=== PATIENT | female | born 1995 | race Caucasian/White ===

== ENCOUNTER 2019-09-25 15:09 | Inpatient (IN) | payer OTHER ==
[~2019-09-25] VITALS: Ht 154.9 cm; Wt 67.0 kg
[2019-09-25] MEDS ORDERED: IOHEXOL 300 MG/ML 100ML VIAL. IV ONE (16:30)
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
[2019-09-25 16:46] LABS: BASO % 0 % (0-3); EOS # 0.1 x10^3/uL (0.0-0.7); EOS % 1 % (0-3); HEMATOCRIT 41.3 % (36.0-47.0); HEMOGLOBIN 14.2 g/dL (12.0-15.5); LYMPH # 1.2 x10^3/uL (1.0-4.8); LYMPH % 15 % (24-48); MEAN CORPUSCULAR HEMOGLOBIN 31 pg (25-35); MEAN CORPUSCULAR HGB CONC 35 g/dL (31-37); MEAN CORPUSCULAR VOLUME 90 fL (79-100); MONO # 0.4 x10^3/uL (0.0-1.1); MONO % 5 % (0-9); NEUT # 6.7 x10^3/uL (1.8-7.7); NEUT % 79 % (31-73); PLATELET COUNT 338 x10^3/uL (140-400); RED CELL DISTRIBUTION WIDTH 12.4 % (11.5-14.5); WHITE BLOOD COUNT 8.5 x10^3/uL (4.0-11.0)
[2019-09-25 16:54] LABS: CALCIUM 8.6 mg/dL (8.5-10.1); POTASSIUM 3.8 mmol/L (3.5-5.1)
[2019-09-25 17:22] LABS: BILIRUBIN,URINE NEGATIVE (NEG); CLARITY,URINE CLEAR; COLOR,URINE YELLOW; NITRITE,URINE NEGATIVE (NEG); PH,URINE 7.5 (<5.0-8.0); PROTEIN,URINE NEGATIVE (NEG-TRACE); UROBILINOGEN,URINE 0.2 mg/dL (0.2 mg/dL)
[2019-09-25 17:31] LABS: BACTERIA,URINE MOD /HPF (0-FEW); RBC,URINE OCC /HPF (0-2); SQUAMOUS EPITHELIAL CELL,UR FEW /LPF
[2019-09-25 17:32] LABS: YEAST,URINE PRESENT /HPF
[2019-09-25 17:35] LABS: BARBITURATES NEG (NEG); BENZODIAZEPINES NEG (NEG); CANNABINOIDS POS (NEG); COCAINE NEG (NEG); METHADONE NEG (NEG); OPIATES NEG (NEG); PHENCYCLIDINE NEG (NEG)
[2019-09-25 17:36] LABS: ACETAMIN < 2 mcg/ml (10-30); ETHANOL < 10 mg/dL (0-10); SALIC < 2.8 mg/dL (2.8-20.0)
[2019-09-25 17:40] LABS: AMPHETAMINE/METHAMPHETAMINE NEG (NEG)
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
[2019-09-25] MEDS ORDERED: CONTRAST GIVEN. MC PRN (18:00)
[2019-09-25] MEDS ORDERED: DIPH,PERTUSS(ACELL),TET VAC/PF 0.5 ML SYRINGE. VAX IM ONE (18:15)
[2019-09-25] MEDS ORDERED: ALPRAZolam 0.25 MG TABLET PO ONE (19:00)
[2019-09-25] MEDS ORDERED: diphenhydrAMINE HCL 25 MG CAPSULE PO PRN (22:15)
[2019-09-25] MEDS ORDERED: ZOLPIDEM 5 MG TABLET. PO PRN (22:15)
[2019-09-25] MEDS ORDERED: ALPRAZolam 0.5 MG TABLET PO PRN (22:15)
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
[2019-09-25 23:00] VITALS: BP 113/75
[2019-09-26 02:57] VITALS: BP 112/76
[2019-09-26 07:00] VITALS: BP 125/54
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
--- NOTE | 2019-09-26 09:00 | NUR ---
NIESHA following. Discussed with RN, pt from home. Roe (AARON) coming to see pt for SI placement. Pt currently on 1:1, COVID-19 negative. NIESHA will continue to follow. Addendum: 09/26/19 at 1445 by LISSA SCHERER Labs entered. NIESHA faxed referral to [facility], awaiting acceptance decision.
[2019-09-26 10:58] VITALS: BP 118/79
[2019-09-26 13:49] LABS: BASO % 0 % (0-3); EOS # 0.2 x10^3/uL (0.0-0.7); EOS % 2 % (0-3); HEMATOCRIT 42.3 % (36.0-47.0); HEMOGLOBIN 14.6 g/dL (12.0-15.5); LYMPH # 1.9 x10^3/uL (1.0-4.8); LYMPH % 24 % (24-48); MEAN CORPUSCULAR HEMOGLOBIN 31 pg (25-35); MEAN CORPUSCULAR HGB CONC 35 g/dL (31-37); MEAN CORPUSCULAR VOLUME 90 fL (79-100); MONO # 0.5 x10^3/uL (0.0-1.1); MONO % 6 % (0-9); NEUT # 5.1 x10^3/uL (1.8-7.7); NEUT % 67 % (31-73); PLATELET COUNT 326 x10^3/uL (140-400); RED BLOOD COUNT 4.68 x10^6/uL (3.50-5.40); RED CELL DISTRIBUTION WIDTH 12.5 % (11.5-14.5); WHITE BLOOD COUNT 7.7 x10^3/uL (4.0-11.0)
[2019-09-26 15:04] VITALS: BP 107/77
[2019-09-26 15:29] LABS: CALCIUM 8.4 mg/dL (8.5-10.1); CREATININE 1.3 mg/dL (0.6-1.0); GFR 49.5; POTASSIUM 3.8 mmol/L (3.5-5.1)
--- NOTE | 2019-09-26 16:44 | NUR ---
Discharge instructions and belongings reviewed with patient, verbalized understanding. Patient was escorted out via ambulation by Derrick MCKENZIE
--- NOTE | 2019-09-27 07:06 | EKG ---
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
== END 2019-09-26 16:46 | disposition home or self-care (01) | DRG 880 ==
LOC: ER 15:09 → EEVIPCON 15:09 → 4 NORTH 18:55
PROVIDERS: ADMIT Internal Medicine; ATTEND Internal Medicine
DX: F41.1 Generalized anxiety disorder (principal); R45.851 Suicidal ideations; F31.9 Bipolar disorder, unspecified; Z20.828 Contact with and (suspected) exposure to other viral communicable diseases; V89.2XXA Person injured in unspecified motor-vehicle accident, traffic, initial encounter; W22.09XA Striking against other stationary object, initial encounter; Y92.410 Unspecified street and highway as the place of occurrence of the external cause; Z98.51 Tubal ligation status; Z79.899 Other long term (current) drug therapy; Y93.89 Activity, other specified; Y92.89 Other specified places as the place of occurrence of the external cause; Y99.8 Other external cause status
CPT/HCPCS: 36415; 70450; 71260; 72125; 74177; 80048; 80307; 80329; 81001; 81025; 83615; 84484; 85025; 90471; 90715; 93005; G0480; Q9967; G0378; U0003-CS